=== PATIENT | female | born 1970 | race Caucasian/White ===

== ENCOUNTER 2023-02-26 09:39 | Outpatient (OUT) | payer OTHER, SELFPAY ==
[2023-02-26 10:17] LABS: Basophils Percent Auto 1.1 % (0.2-2.0); Eosinophils Absolute Auto 0.2 10^3/uL (0.0-0.7); Hematocrit 39.6 % (36.0-48.0); Hemoglobin 13.6 g/dL (12.0-16.0); Lymphocytes Absolute Auto 1.1 10^3/uL (1.2-3.8); Lymphocytes Percent Auto 38.2 % (20.5-60.0); Mean Corpuscular HGB Conc 34.3 g/dL (29.9-35.2); Mean Corpuscular Hemoglobin 28.3 pg (26.7-34.0); Mean Corpuscular Volume 82.3 fL (81.0-99.0); Mean Platelet Volume 9.9 fL (9.5-13.5); Monocytes Absolute Auto 0.3 10^3/uL (0.3-0.8); Monocytes Percent Auto 9.5 % (1.7-12.0); Neutrophils Absolute Auto 1.2 10^3/uL (1.4-6.5); Neutrophils Percent Auto 43.2 % (43.0-75.0); Platelet Count 216 10^3/uL (150-450); Red Blood Count 4.81 10^6/uL (4.20-5.40); Red Cell Distribution Width 13.2 % (11.0-15.0); White Blood Count 2.8 10^3/uL (4.0-11.0)
[2023-02-26 10:43] LABS: Anion Gap 13.6; BUN Creatinine Ratio 16.3; Calcium 9.2 mg/dL (8.5-10.1); Carbon Dioxide 26.4 mmol/L (21.0-32.0); Chloride 105 mmol/L (98-107); Estimated GFR (African America >60 (>=60); Estimated GFR (Non-African Ame >60 (>=60); Glucose 95 mg/dL (74-106); Sodium 141 mmol/L (136-145); Thyroid Stimulating Hormone 0.156 uIU/mL (0.358-3.740)
[2023-02-26 11:22] LABS: Free T4 1.48 ng/dL (0.76-1.46)
== END 2023-02-26 09:40 | disposition home or self-care (01) ==
PROVIDERS: PCP Family Medicine; Visit Provider Family Medicine
DX: Z00.00 Encounter for general adult medical examination without abnormal findings (principal); E03.9 Hypothyroidism, unspecified
CPT/HCPCS: 36415; 80048; 84439; 84443; 85025

== ENCOUNTER 2023-05-23 08:25 | Outpatient (OUT) | payer OTHER, SELFPAY ==
[2023-05-23 08:57] LABS: Basophils Percent Auto 1.1 % (0.2-2.0); Eosinophils Absolute Auto 0.2 10^3/uL (0.0-0.7); Eosinophils Percent Auto 6.4 % (0.9-7.0); Hematocrit 40.8 % (36.0-48.0); Hemoglobin 14.1 g/dL (12.0-16.0); Lymphocytes Absolute Auto 1.3 10^3/uL (1.2-3.8); Lymphocytes Percent Auto 35.8 % (20.5-60.0); Mean Corpuscular HGB Conc 34.6 g/dL (29.9-35.2); Mean Corpuscular Hemoglobin 29.4 pg (26.7-34.0); Monocytes Absolute Auto 0.3 10^3/uL (0.3-0.8); Monocytes Percent Auto 7.8 % (1.7-12.0); Neutrophils Absolute Auto 1.8 10^3/uL (1.4-6.5); Neutrophils Percent Auto 48.9 % (43.0-75.0); Platelet Count 240 10^3/uL (150-450); Red Cell Distribution Width 12.3 % (11.0-15.0); White Blood Count 3.7 10^3/uL (4.0-11.0)
[2023-05-23 09:05] LABS: Thyroid Stimulating Hormone 0.217 uIU/mL (0.358-3.740)
[2023-05-23 09:42] LABS: Free T4 1.36 ng/dL (0.76-1.46)
== END 2023-05-23 08:26 | disposition home or self-care (01) ==
LOC: LAB 08:30
PROVIDERS: PCP Family Medicine; Visit Provider Family Medicine
DX: D72.819 Decreased white blood cell count, unspecified (principal); E03.9 Hypothyroidism, unspecified
CPT/HCPCS: 36415; 84439; 84443; 85025

== ENCOUNTER 2023-07-15 07:31 | Outpatient (OUT) | payer OTHER, SELFPAY ==
--- NOTE | 2023-07-15 07:58 | MM_ITS ---
Patient Name: CATHY CANALES MR#: [id number] : 1970 Exam Date: 07/15/2023 Ordering Doctor: DR Destiny Cedeno M.D. RADIOLOGY REPORT PROCEDURE: MM TOMOSYNTHESIS SCREENING BI COMPARISON: MG MAMM SCREEN 3D MELINDA CAD, 07/14/2022. MG MAMM SCREEN 3D MELINDA CAD, 03/13/2021. MG MAMM SCREEN MELINDA W CAD, 01/24/2020. MG MAMM MELINDA SCRN W CAD DIG, 01/24/2015. INDICATIONS: Screening Calculator Name NCI Breast Cancer Risk Assessment Tool 5 Year Breast Cancer Risk 1.10% Lifetime Breast Cancer Risk 9.70% Personal Breast Cancer No Personal Ovarian Cancer No Treatments None Family Cancers Grandfather-paternal with lung cancer at age ~75. LOCATION: [facility] BREAST COMPOSITION: Extremely dense, which lowers the sensitivity of mammography. FINDINGS: DIAGNOSTIC CATEGORY 1--NEGATIVE. RIGHT BREAST: No significant suspicious finding. No significant change has occurred. LEFT BREAST: No significant suspicious finding. No significant change has occurred. RECOMMENDATIONS: ROUTINE MAMMOGRAM AND CLINICAL EVALUATION IN 12 MONTHS. PLEASE NOTE: A NORMAL MAMMOGRAM DOES NOT EXCLUDE THE POSSIBILITY OF BREAST CANCER. A CLINICALLY SUSPICIOUS PALPABLE LUMP SHOULD BE BIOPSIED. Dictated by: Yuri Mcintyre M.D. on 07/15/2023 at 14:34 Approved by: Yuri Mcintyre M.D. on 07/15/2023 at 14:37
== END 2023-07-15 07:32 | disposition home or self-care (01) ==
LOC: MAMMO 07:31
PROVIDERS: PCP Family Medicine; Visit Provider Family Medicine
DX: Z12.31 Encounter for screening mammogram for malignant neoplasm of breast (principal); Z80.1 Family history of malignant neoplasm of trachea, bronchus and lung
CPT/HCPCS: 77063; 77067

== ENCOUNTER 2023-08-13 11:36 | Outpatient (OUT) | payer OTHER, SELFPAY ==
--- OUTSIDE RECORDS SUMMARY | 2023-08-13 11:39 | XMS_ITS | CCD ---
Author Name Unknown Address [address] [facility] [address] [place] [id number] Organization [facility] Care Team Providers Care Meteorological Engineer Name Role Phone SKYLER, DR DESTINY Chinchilla Attending Unavailable NICOLE, DR YURI Emerson Consulting Unavailable CEDENO, DR DESTINY Chinchilla Primary Care Unavailable CEDENO, DR DESTINY Chinchilla Admitting Unavailable CEDENO, DR DESTINY Chinchilla Consulting Unavailable CEDENO, DR DESTINY Chinchilla Attending Unavailable CEDENO, DR DESTINY Chinchilla Consulting Unavailable CEDENO, DR DESTINY Chinchilla Primary Care Unavailable CEDENO, DR DESTINY hCinchilla Admitting Unavailable CEDENO, DR DESTINY Chinchilla Attending Unavailable CEDENO, DR DESTINY Chinchilla Consulting Unavailable CEDENO, DR DESTINY Chinchilla Primary Care Unavailable CEDENO, DR DESTINY Chinchilla Admitting Unavailable Cedeno, Destiny Unavailable Allergies Allergy Classification Reported Allergen(s) Allergy Type Date of Onset Reaction(s) Facility (3 sources) patient allergy list reviewed by nurse or physicia Propensity to adverse reactions Comment:Done [facility] Other (3 sources) Allergies Reconciled Propensity to adverse reactions Unknown [facility] Other Medications Current Medications Medication Drug Class(es) Dates Sig (Normalized) Sig (Original) acyclovir 800 mg oral tablet (6 sources) Herpesvirus Nucleoside Analog DNA Polymerase Inhibitor, Herpes Simplex Virus Nucleoside Analog DNA Polymerase Inhibitor, Herpes Zoster Virus Nucleoside Analog DNA Polymerase Inhibitor Start: 09-21-2022 take 1 tablet by mouth every eight hours Acyclovir 800 MG 1 tablet Orally Three times a day for 7 days Sep, Active levothyroxine sodium 0.088 mg oral tablet (6 sources) l-Thyroxine take 1 tablet by mouth once daily in the morning Levothyroxine Sodium 88 MCG 1 tablet in the morning on an empty stomach Orally Once a day for 90 days Active take 1 tablet by mateusz th once daily in the morning Levothyroxine Sodium 88 MCG 1 tablet in the morning on an empty stomach Orally Once a day for 90 days Active take 1 tablet by mateuzs th once daily in the morning Levothyroxine Sodium 100 MCG 1 tablet in the morning on an empty stomach Orally Once a day for 90 days Active take 1 tablet by mateusz th once daily in the morning Levothyroxine Sodium 112 MCG 1 tablet in the morning on an empty stomach Orally Once a day Active Problems Active Problems Problem Classification Problem Date Documented Da te Episodic/Chronic Diseases of white blood cells (5 sources) Leukopenia; Translations: [Decreased white blood cell count, unspecified] Chronic Immunizations and screening for infectious disease (3 sources) Vaccination given; Translations: [Encounter for immunization] Episodic Other screening for suspected conditions (not mental disorders or infectious disease) (8 sources) Encounter for screening mammogram for malignant neoplasm of breast; Translations: [Encounter for screening for malignant neoplasm of cervix] Onset: 02-02-2022 Episodic Other skin disorders (3 sources) Ingrowing nail; Translations: [Ingrowing nail] Episodic Residual codes; unclassified (1 source) Family history of malignant neoplasm of trachea, bronchus and lung; Translations: [FAM HX MALIG NEOPLSM TRACH BRON LNG] Onset: 07-17-2022 Episodic Residual codes; unclassified (3 sources) Normal body mass index; Translations: [Body mass index (BMI) 22.0-22.9, adult] Episodic Thyroid disorders (12 sources) Hypothyroidism, unspecified; Translations: [Acquired hypothyroidism] Onset: 02-04-2022 Chronic Viral infection (3 sources) Herpesviral vesicular dermatitis; Translations: [Herpesviral vesicular dermatitis] Episodic Past or Other Problems Problem Classification Problem Date Documented Da te Episodic/Chronic Allergic reactions (3 sources) Inflammatory dermatosis; Translations: [Dermatitis, unspecified] Onset: 05-26-2017 Episodic Residual codes; unclassified (3 sources) Family history of diabetes mellitus; Translations: [Family history of diabetes mellitus] Onset: 2013 Episodic Results Test Name Value Interpretation Reference Range Facil ity MG MAMM SCREEN 3D MELINDA CADon 07-14-2022 MG MAMM SCREEN 3D MELINDA CAD Patient: CATHY CANALES Exam Date: 07/14/2022 : 1970 Gender:F Ordering : DR DESTINY CEDENO M.D. Admission #: [id number] Family : Order #: [id number] CLICK HERE TO VIEW EXAM RADIOLOGY REPORT PROCEDURE: MAMMOGRAM SCREENING 3D BILATERAL CAD COMPARISON: MG MAMM SCREEN 3D MELINDA CAD, 03/13/2021. MG MAMM SCREEN MELINDA W CAD, 01/24/2020. INDICATIONS: Screening mammography Calculator Name NCI Breast Cancer Risk Assessment Tool 5 Year Breast Cancer Risk 1.10% Lifetime Breast Cancer Risk 9.90% Personal Breast Cancer No Personal Ovarian Cancer No Treatments None Family Cancers Grandfather-paternal with lung cancer at age 75. LOCATION: [facility] BREAST COMPOSITION: Extremely dense, which lowers the sensitivity of mammography. FINDINGS: DIAGNOSTIC CATEGORY 1--NEGATIVE. RIGHT BREAST: No significant suspicious finding. No significant change has occurred. LEFT BREAST: No significant suspicious finding. No significant change has occurred. RECOMMENDATIONS: ROUTINE MAMMOGRAM AND CLINICAL EVALUATION IN 12 MONTHS. PLEASE NOTE: A NORMAL MAMMOGRAM DOES NOT EXCLUDE THE POSSIBILITY OF BREAST CANCER. A CLINICALLY SUSPICIOUS PALPABLE LUMP SHOULD BE BIOPSIED. Dictated by: Yuri Mcintyre M.D. on 07/14/2022 at 15:34 Approved by: Yuri Mcintyre M.D. on 07/14/2022 at 15:36 Normal [facility] PAP ACOG PANEL 2: 30 to 65on 02-04-2022 . . Normal [facility] Comment on above: Result Comment: Performed at: WB Performed By: #### [id number] #### [facility] [address] [address] [address] Bret Marinelli Age Gdln ACOG Testing 30-65 Normal [facility] Comment on above: Performed By: #### [id number] #### [facility] [address] [address] [address] Bret Marinelli DIAGNOSIS: Comment Normal [facility] Comment on above: Result Comment: NEGATIVE FOR INTRAEPITHE LIAL LESION OR MALIGNANCY. Performed at: WB Performed By: #### [id number] #### [facility] [address] [address] [address] Bret Marinelli HPV Aptima Negative Normal Negative [facility] Comment on above: Result Comment: This nucleic acid amplif ication test detects fourteen high-risk HPV types (16,18,31,33,35,39,45,51,52,56,58,59,66,68) without differentiation. Performed at: =G Performed By: #### [id number] #### [facility] [address] [place] [address] Dr. Bret Marinelli Methodology: Comment Normal [facility] Comment on above: Result Comment: This liquid based ThinPr ep(R) pap test was screened with the use of an image guided system. Performed at: WB Performed By: #### [id number] #### [facility] [address] [place] [address] Dr. Bret Marinelli Note: Comment Normal [facility] Comment on above: Result Comment: The Pap smear is a scree landry test designed to aid in the detection of premalignant and malignant conditions of the uterine cervix. It is not a diagnostic procedure and should not be used as the sole means of detecting cervical cancer. Both false-positive and false-negative reports do occur. . Performed at: WB Performed By: #### [id number] #### [facility] [address] [place] [address] Dr. Bret Marinelli Performed by: Comment Normal [facility] Comment on above: Result Comment: Henri Batista Cytotechnolinda griffiths (ASCP) Performed at: WB Performed By: #### [id number] #### [facility] [address] [place] [address] Dr. Bret Marinelli Specimen adequacy: Comment Normal [facility] Comment on above: Result Comment: Satisfactory for evaluat ion. No endocervical component is identified. Performed at: WB Performed By: #### [id number] #### [facility] [address] [place] [address] Dr. Bret Marinelli FREE T4on 02-02-2022 Free T4 [Mass/Vol] 1.40 ng/dL Normal 0.76-1.46 [facility] Comment on above: Performed By: #### [id number] #### [facility] [address] [place] [address] Dr. Bret Marinelli TSHon 02-02-2022 TSH 0.197 uIU/mL Critically low 0.358-3.740 [facility] Comment on above: Performed By: #### TSH #### [facility] [address] [place] [address] Dr. Bret Marinelli Vital Signs Date Time Vital Sign Value Performing Clinician Facility 02-04-2023 08:30-0400 Body height 170.18 cm Destiny Cedeno Other [facility] Other 02-04-2023 08:30-0400 Body mass index (BMI) [Ratio] 22.55 kg/m2 Destiny Cedeno Other [facility] Other 02-04-2023 08:30-0400 Body weight 65.32 kg Destiny Cedeno Other [facility] Other 02-04-2023 08:30-0400 Diastolic blood pressure 70 mm[Hg] Destiny Cedeno Other [facility] Other 02-04-2023 08:30-0400 Systolic blood pressure 117 mm[Hg] Destiny Cedeno Other [facility] Other Encounters Encounter Date Encounter Type Care Provider Facility Start: 07-22-2023 End: 07-22-2023 ambulatory Destiny Cedeno Other [facility] Other Start: 07-22-2023 Telephone encounter Destiny Cedeno [facility] Start: 05-25-2023 End: 05-25-2023 ambulatory Destiny Cedeno Other [facility] Other Start: 05-25-2023 Telephone encounter Destiny Cedeno [facility] Start: 05-10-2023 End: 05-10-2023 ambulatory Destiny Cedeno Other [facility] Other Start: 05-10-2023 Telephone encounter Destiny Cedeno [facility] Start: 02-28-2023 End: 02-28-2023 ambulatory Destiny Cedeno Other [facility] Other Start: 02-28-2023 Telephone encounter Destiny Cedeno [facility] Start: 02-04-2023 End: 02-04-2023 ambulatory Destiny Cedeno Other [facility] Other Start: 02-04-2023 Encounter for genera l adult medical examination without abnormal findings Destiny Cedeno [facility] Start: 02-04-2023 Periodic preventive med est patient 40-64yrs Destiny Cedeno [facility] Start: 07-14-2022 End: 07-15-[address] DESTINY CEDENO Facility:[facility] Start: 02-02-2022 End: 02-02-[address] DESTINY CEDENO Facility:[facility] Start: 02-02-2022 Adult health examination Destiny Cedeno Other [facility] Other Start: 02-02-2022 End: 02-03-[address] DESTINY CEDENO Facility:[facility] Procedures Date Procedure Procedure Detail Performing Clinician Start: 12-19-2014 Screening mammography Stacia Cedeno Other Screening for malign ant neoplasm of breast Destiny Cedeno Other Immunizations Immunization Date Immunization Notes Care Provider Fa cili 05-26-2021 influenza virus vaccine, split virus (incl. purified surface antigen) Destiny Cedeno Other [facility] Other Payers Date Payer Category Payer Unknown [id number] 09.30.83 [id number] 1970 Unknown [id number] [id number]. [id number] 1970 Unknown [id number] 09.30.83 [id number] 1958 Unknown [id number] Social History Date Type Detail Facility Unknown if ever smoked [facility] Other Sex Assigned At Sex Assigned At Bir th [facility] Other Evaluation note 07-22-2023 Note Date & Type Note Facility 07-22-2023 Evaluation note Encounter Date Diagnosis Assessment Notes Jul, Leukopenia, unspecified type (ICD-10 - D72.819) [facility] Other Evaluation note 05-10-2023 Note Date & Type Note Facility 05-10-2023 Evaluation note Encounter Date Diagnosis Assessment Notes Apr, Leukopenia, unspecified type (ICD-10 - D72.819) Apr, Acquired hypothyroidism (ICD-10 - E03.9) [facility] Other Evaluation note 02-04-2023 Note Date & Type Note Facility 02-04-2023 Evaluation note Encounter Date Diagnosis Assessment Notes Jan, Well adult exam (ICD-10 - Z00.00) We have discussed the necessity of following up with PCP regularly as well as specialists, as needed. Discussed F/U with dentistry and optometry at least yearly. Discussed all preventative measures/ cancer screenings as applicable to this patient. Emphasized the importance of a reduced fat, low carb diet to promote heart health and controlled blood sugars. Reviewed social history and ensured patient is safe within the home today. Pt denies any abuse of alcohol, nicotine, caffeine or recreational drugs. I have ensured patient is of stable mental and physical health today. We have discussed appropriate F/U schedule as well as blood work and vaccinations that apply. All questions answered and patient is sent home pleased, without concerns. Jan, Acquired hypothyroidism (ICD-10 - E03.9) chronic problem - due for labs [facility] Other Evaluation note Note Date & Type Note Facility Evaluation note No Information [facility] Other History general Narrative - Reported Note Date & Type Note Facility History general Narrative - Reported Type Medical History HYPOTHYROID [facility] Other History general Narrative - Reported Note Date & Type Note Facility History general Narrative - Reported [facility] Other History general Narrative - Reported Note Date & Type Note Facility History general Narrative - Reported Type Medical History HYPOTHYROID Surgical History Problem Title : past surgical history reviewed, Problem Description : past surgical history reviewed, Problem Comment : reviewed - no changes required, Problem Status : Active, Surgical History Problem Title : surg ical procedures, hx of, Problem Description : surgical procedures, hx of, Problem Comment : None, Problem Status : Active, [facility] Other Summary Purpose Family History No Family History Records Found Advance Directives No Advanced Directives Records Found Additional Source Comments INFORMATION SOURCE (unrecogn ized section and content) DATE CREATED AUTHOR 07/17/2022 [facility] REASON FOR VISIT (unrecogniz ed section and content) WELLNESSNo [email or web address] FOR RECORDS PERTAINING TO PATIENTS WHO ARE OR HAVE BEEN ENROLLED IN A CHEMICAL DEPENDENCY/SUBSTANCEABUSE PROGRAM, SOME INFORMATION MAY BE OMITTED. This clinical summary was aggregated from multiple sources. Caution should be exercised in using it in the provision of clinical care. This summary normalizes information from multiple sources, and as a consequence, information in this document may materially change the coding, format and clinical context of patient data. In addition, data may be omitted in some cases. CLINICAL DECISIONS SHOULD BE BASED ON THE PRIMARY CLINICAL RECORDS. [employer] [facility]. provides no warranty or guarantee of the accuracy or completeness of information in this document.
[2023-08-13 11:49] LABS: Basophils Percent Auto 0.9 % (0.2-2.0); Eosinophils Absolute Auto 0.2 10^3/uL (0.0-0.7); Eosinophils Percent Auto 4.8 % (0.9-7.0); Hematocrit 38.3 % (36.0-48.0); Immature Granulocytes Abs Auto 0.01 10^3/uL (0.00-0.03); Immature Granulocytes Pct Auto 0.2 % (0.0-0.5); Lymphocytes Absolute Auto 1.6 10^3/uL (1.2-3.8); Lymphocytes Percent Auto 35.7 % (20.5-60.0); Mean Corpuscular HGB Conc 33.9 g/dL (29.9-35.2); Mean Corpuscular Hemoglobin 28.3 pg (26.7-34.0); Mean Corpuscular Volume 83.3 fL (81.0-99.0); Mean Platelet Volume 10.1 fL (9.5-13.5); Monocytes Absolute Auto 0.4 10^3/uL (0.3-0.8); Monocytes Percent Auto 8.5 % (1.7-12.0); Neutrophils Absolute Auto 2.3 10^3/uL (1.4-6.5); Neutrophils Percent Auto 49.9 % (43.0-75.0); Platelet Count 258 10^3/uL (150-450); Red Cell Distribution Width 12.2 % (11.0-15.0); White Blood Count 4.6 10^3/uL (4.0-11.0)
== END 2023-08-13 11:37 | disposition home or self-care (01) ==
LOC: LAB 11:38
PROVIDERS: PCP Family Medicine; Visit Provider Family Medicine
DX: D72.819 Decreased white blood cell count, unspecified (principal)
CPT/HCPCS: 36415; 85025

== ENCOUNTER 2024-02-10 09:45 | Outpatient (OUT) | payer OTHER, SELFPAY ==
--- OUTSIDE RECORDS SUMMARY | 2024-02-10 09:50 | XMS_ITS | CCD ---
Author Organization [facility] Care Team Providers Care Specialized Developer Name Role Phone SKYLER, DR DESTINY Chinchilla Attending Unavailable NICOLE, DR YURI Emerson Consulting Unavailable CEDENO, DR DESTINY Chinchilla Primary Care Unavailable CEDENO, DR DESTINY Chinchilla Admitting Unavailable CEDENO, DR DESTINY Chinchilla Consulting Unavailable CEDENO, DR DESTINY Chinchilla Attending Unavailable CEDENO, DR DESTINY Chinchilla Consulting Unavailable CEDENO, DR DESTINY Chinchilla Primary Care Unavailable CEDENO, DR DESTINY Chinchilla Admitting Unavailable CEDENO, DR DESTINY Chinchilla Attending Unavailable CEDENO, DR DESTINY Chinchilla Consulting Unavailable CEDENO, DR DESTINY Chinchilla Primary Care Unavailable CEDENO, DR DESTINY Chinchilla Admitting Unavailable Destiny Cedeno Unavailable Allergies Allergy Classification Reported Allergen(s) Allergy Type Date of Onset Reaction(s) Facility (4 sources) patient allergy list reviewed by nurse or physicia Propensity to adverse reactions Comment:Done [facility] Other (4 sources) Allergies Reconciled Propensity to adverse reactions Unknown [facility] Other Medications Current Medications Medication Drug Class(es) Dates Sig (Normalized) Sig (Original) acyclovir 800 mg oral tablet (9 sources) Herpesvirus Nucleoside Analog DNA Polymerase Inhibitor, Herpes Simplex Virus Nucleoside Analog DNA Polymerase Inhibitor, Herpes Zoster Virus Nucleoside Analog DNA Polymerase Inhibitor Start: 12-12-2023 End: 12-12-2023 take 800 mg by mouth three times daily Acyclovir Active 800 MG PO Three times daily December 12, 2023 12:21pm Start: 09-21-2022 take 1 tablet by mateusz th every eight hours Acyclovir 800 MG 1 tablet Orally Three times a day for 7 days Sep, Active estradiol 0.1 mg/ml vaginal cream (1 source) Estrogen Start: 02-10-2024 Estradiol (Est race) 0.01 % (0.1 mg/gram) cream Active 1 GM VAGINAL 3 Times a week 42.5 February 10, 2024 12:00am levothyroxine sodium 0.088 mg oral tablet (9 sources) l-Thyroxine Start: 11-22-2023 take 1 tablet by mouth once daily in the morning Levothyroxine Active 0 .ROUTE .COMPLEX 90 November 22, 2023 2:53pm take 1 tablet by mouth every morning ON AN EMPTY STOMACH Start: 11-22-2023 End: 11-22-2023 take 88 ug by mouth once daily Levothyroxine Discontin ued 88 MCG PO Daily November 22, 2023 12:00am November 22, 2023 2:53pm take 1 tablet by mateusz th once [...] te Episodic/Chronic Diseases of white blood cells (6 sources) Leukopenia; Translations: [Decreased white blood cell count, unspecified] Chronic Immunizations and screening for infectious disease (4 sources) Vaccination given; Translations: [Encounter for immunization] Episodic Menopausal disorders (2 sources) Vaginal dryness; Translations: [Menopausal and female climacteric states] 02-10-2024 Chronic Other screening for suspected conditions (not mental disorders or infectious disease) (8 sources) Encounter for screening mammogram for malignant neoplasm of breast; Translations: [Encounter for screening for malignant neoplasm of cervix] Onset: 02-02-2022 Episodic Other skin disorders (4 sources) Ingrowing nail; Translations: [Ingrowing nail] Episodic Residual codes; unclassified (1 source) Family history of malignant neoplasm of trachea, bronchus and lung; Translations: [FAM HX MALIG NEOPLSM TRACH BRON LNG] Onset: 07-17-2022 Episodic Residual codes; unclassified (4 sources) Normal body mass index; Translations: [Body mass index (BMI) 22.0-22.9, adult] Episodic Thyroid disorders (16 sources) Hypothyroidism, unspecified; Translations: [Acquired hypothyroidism] Onset: 02-04-2022 Chronic Viral infection (4 sources) Herpesviral vesicular dermatitis; Translations: [Herpesviral vesicular dermatitis] Episodic Past or Other Problems Problem Classification Problem Date Documented Da te Episodic/Chronic Allergic reactions (4 sources) Inflammatory dermatosis; Translations: [Dermatitis, unspecified] Onset: 05-26-2017 Episodic Residual codes; unclassified (4 sources) Family history of diabetes mellitus; Translations: [Family history of diabetes mellitus] Onset: 2013 Episodic Results Test Name Value Interpretation Reference Range Facil ity MG MAMM SCREEN 3D MELINDA CADon 07-14-2022 MG MAMM SCREEN 3D MELINDA CAD Patient: JALEESA PAGAN Exam Date: 07/14/2022 : 1970 Gender:F Ordering : DR DESTINY CEDENO M.D. Admission #: [id number] Family : Order #: [id number] CLICK HERE TO VIEW EXAM RADIOLOGY REPORT [...] lung cancer at age 76. LOCATION: [facility] BREAST COMPOSITION: Extremely dense, which lowers the [...] Mcintyre M.D. on 07/14/2022 at 15:36 Normal [facility] PAP ACOG PANEL 2: 30 to 65on 02-04-2022 . . Normal [facility] Comment on above: Result Comment: Performed at: WB Performed By: #### [id number] #### [facility] [address] [place] [address] Dr. Bret Marinelli Age Gdln ACOG Testing 30-65 [facility] Comment on above: Performed By: #### [id number] #### [facility] [address] [place] [address] Dr. Bret Marinelli DIAGNOSIS: Comment Normal [facility] Comment on above: Result Comment: NEGATIVE FOR INTRAEPITHE LIAL LESION OR MALIGNANCY. Performed at: WB Performed By: #### [id number] #### [facility] [address] [place] [address] Dr. Bret Marinelli HPV Aptima Negative Normal [facility] Comment on above: Result Comment: This nucleic acid amplif ication test detects fourteen high-risk HPV types (16,18,31,33,35,39,45,51,52,56,58,59,66,68) without differentiation. Performed at: =G Performed By: #### [id number] #### [facility] [address] [place] [address] Dr. Bret Marinelli Methodology: Comment [facility] Comment on above: Result Comment: This liquid based ThinPr ep(R) pap test was screened with the use of an image guided system. Performed at: WB Performed By: #### [id number] #### [facility] [address] [place] [address] Dr. Bret Marinelli Note: Comment Normal [facility] Comment on above: Result Comment: The Pap smear is a scree landry test designed to aid in the detection of premalignant and malignant conditions of the uterine cervix. It is not a diagnostic procedure and should not be used as the sole means of detecting cervical cancer. Both false-positive and false-negative reports do occur. . Performed at: WB Performed By: #### [id number] #### [facility] [address] [place] [address] Dr. Bret Marinelli Performed by: Comment Normal [facility] Comment on above: Result Comment: Henri Batista, [employer]ote[employer] ogchiquita (ASCP) Performed at: WB Performed By: #### [id number] #### [facility] [address] [address] [address] Bret Marinelli Specimen adequacy: Comment Normal [facility] Comment on above: Result Comment: Satisfactory for evaluat ion. No endocervical component is identified. Performed at: WB Performed By: #### [id number] #### [facility] [address] [address] [address] Bret Marinelli FREE T4on 02-02-2022 Free T4 [Mass/Vol] 1.40 ng/dL Normal 0.76-1.46 [facility] Comment on above: Performed By: #### FT4 #### [facility] [address] [address] [address] Bret Marinelli TSHon 02-02-2022 TSH 0.197 uIU/mL Critically low 0.358-3.740 [facility] Comment on above: Performed By: #### TSH #### [facility] [address] [place] [address] Dr. Bret Marinelli Vital Signs Date Time Vital Sign Value Performing Clinician Facility 02-10-2024 08:31-0400 Body height 170.18 cm [facility] 02-10-2024 08:31-0400 Body mass index (BMI) [Ratio] 22.5 kg/m2 [facility] 02-10-2024 08:31-0400 Body weight 65.31 kg [facility] 02-10-2024 08:31-0400 Diastolic blood pressure 72 mm[Hg] [facility] 02-10-2024 08:31-0400 Heart rate 72 /min [facility] 02-10-2024 08:31-0400 Systolic blood pressure 115 mm[Hg] [facility] 02-04-2023 08:30-0400 Body height 170.18 cm Destiny Cedeno Other [facility] Other 02-04-2023 08:30-0400 Body mass index (BMI) [Ratio] 22.55 kg/m2 Destiny Cedeno Other [facility] Other 02-04-2023 08:30-0400 Body weight 65.32 kg Destiny Skyler Other [facility] Other 02-04-2023 08:30-0400 Diastolic blood pressure 70 mm[Hg] Destiny Skyler Other [facility] Other 02-04-2023 08:30-0400 Systolic blood pressure 117 mm[Hg] Destiny Cedeno Other [facility] Other Encounters Encounter Date Encounter Type Care Provider Facility Start: 02-10-2024 End: 02-10-2024 ambulatory [facility] Work Phone: Start: 02-10-2024 End: 02-10-2024 Patient encounter procedure [facility] Work Phone: Start: 11-22-2023 Non-patient / Non-visit [id number] Work Phone: Start: 08-16-2023 End: 08-16-2023 ambulatory Destiny Cedeno Other [facility] Other Start: 08-16-2023 Telephone encounter Destiny Cedeno [facility] Start: 07-22-2023 End: 07-22-2023 ambulatory Destiny Cedeno Other [facility] Other Start: 07-22-2023 Telephone encounter Destiny Skyler [facility] Start: 05-25-2023 End: 05-25-2023 ambulatory Destiny Cedeno Other [facility] Other Start: 05-25-2023 Telephone encounter Destiny Skyler [facility] Start: 05-10-2023 End: 05-10-2023 ambulatory Destiny Cedeno Other [facility] Other Start: 05-10-2023 Telephone encounter Destiny Cedeno [facility] Start: 02-28-2023 End: 02-28-2023 ambulatory Destiny Cedeno Other [facility] Other Start: 02-28-2023 Telephone encounter Destiny Cedeno [facility] Start: 02-04-2023 End: 02-04-2023 ambulatory Destiny Cedeno Other [facility] Other Start: 02-04-2023 Encounter for genera l adult medical examination without abnormal findings Destiny Cedeno [facility] Start: 02-04-2023 Periodic preventive med est patient 40-64yrs Destiny Cedeno [facility] Start: 07-14-2022 End: 07-15-[address] DESTINY CEDENO Facility:[facility] Start: 02-02-2022 End: 02-02-[address] DESTINY CEDENO Facility:[facility] Start: 02-02-2022 Adult health examination Destiny Cedeno Other [facility] Other Start: 02-02-2022 End: 02-03-[address] DESTINY CEDENO Facility:[facility] Procedures Date Procedure Procedure Detail Performing Clinician Start: 12-19-2014 Screening mammography Stacia teagan Cedeno Other Screening for malign ant neoplasm of breast Destiny Cedeno Other Plan of Treatment Date Care Activity Detail Author [facility] Immunizations Immunization Date Immunization Notes Care Provider Fa cility 05-26-2021 influenza virus vaccine, split virus (incl. purified surface antigen) Destiny Cedeno Other [facility] Other 05-26-2021 influenza virus vaccine, unspecified formulation [facility] Payers Date Payer Category Payer Unknown [id number] .[id number] 1970 Unknown [id number] 1970 Unknown [id number] 1958 Unknown [id number] Social History Date Type Detail Facility Unknown if ever smoked [facility] Other Sex Assigned At Sex Assigned At Bir th [facility] Other Start: 1970 Sex Assigned At Female F [facility] Evaluation note 07-22-2023 Note Date & Type Note Facility 07-22-2023 Evaluation note Encounter Date Diagnosis Assessment Notes Jul, Leukopenia, unspecified type (ICD-10 - D72.819) [facility] Other Evaluation note 05-10-2023 Note Date & Type Note Facility 05-10-2023 Evaluation note Encounter Date Diagnosis Assessment Notes Apr, Leukopenia, unspecified type (ICD-10 - D72.819) Apr, Acquired hypothyroidism (ICD-10 - E03.9) [facility] Other Evaluation note 02-04-2023 Note Date & [...] E03.9) chronic problem - due for labs [facility] Other Evaluation note Note Date & Type Note Facility Evaluation note No Information [facility] Other Evaluation note Note Date & Type Note Facility Evaluation note Diagnosis Onset Date Acquired hypothyroidism acut e Vaginal dryness, menopausal acute [facility] exam acute [facility] Work Phone: History general Narrative - Reported Note Date & Type Note Facility History general Narrative - Reported Type Medical History HYPOTHYROID [facility] Other History general Narrative - Reported Note Date & Type Note Facility History general Narrative - Reported [facility] Other History general Narrative - Reported Note [...] Comment : None, Problem Status : Active, [facility] Other Summary Purpose Family History Relationship Condition Age at Onset Recorded Date/T sabas brother Diabetes mellitus Unknown Hypertension Unknown father Hypertension Unknown Diabetes mellitus Unknown mother Unknown Advance Directives Advance Directive Response Recorded Date/ Time Advance Directives No January 09 2:40pm Chief Complaint and Reason for Visit Chief Complaint Amb Documentation wellness, womens pap Reason for Visit Acquired hypothyroid ism Vaginal dryness, menopausal Well woman exam Additional Source Comments INFORMATION SOURCE (unrecogn ized section and content) DATE CREATED AUTHOR 07/17/2022 [facility] REASON FOR VISIT (unrecogniz ed section and content) WELLNESSNo [email or web address] [email or web address] [facility] Care Teams (unrecognized sec tion and content) Team Status: Active Member Role Status Dates Destiny Cedeno MD Primary Care Provider Active Team Status: Active Member Role Status Dates Destiny Cedeno MD Primary Care Provider Active Start: November 22, 2023 CHELY Keating Attending Provider Active Start : November 22, 2023 Team Status: Inactive Member Role Status Dates Destiny Cedeno MD Primary Care Provide r, Attending Provider Active Start: February 10, 2024 End: February 10, 2024 Goals (unrecognized section and content) Goals may be documented in a n alternate section FOR RECORDS PERTAINING TO PATIENTS WHO ARE [...] BE BASED ON THE PRIMARY CLINICAL RECORDS. [facility] [employer] [facility]. provides no warranty or guarantee of the accuracy or completeness of information in this document.
[2024-02-10 11:23] LABS: Free T4 0.93 ng/dL (0.76-1.46)
[2024-02-10 11:37] LABS: Thyroid Stimulating Hormone 7.068 uIU/mL (0.358-3.740)
== END 2024-02-10 09:46 | disposition home or self-care (01) ==
LOC: LAB 09:46
PROVIDERS: PCP Family Medicine; Visit Provider Family Medicine
DX: E03.9 Hypothyroidism, unspecified (principal)
CPT/HCPCS: 36415; 84439; 84443

== ENCOUNTER 2024-07-20 07:54 | Outpatient (OUT) | payer OTHER, SELFPAY ==
--- NOTE | 2024-07-20 07:56 | MM_ITS ---
Patient Name: CATHY CANALES MR#: [id number] : 1970 Exam Date: 07/20/2024 Ordering Doctor: DR Destiny Cedeno M.D. RADIOLOGY REPORT PROCEDURE: MM TOMOSYNTHESIS SCREENING BI COMPARISON: MM TOMOSYNTHESIS SCREENING BI, 07/15/2023. MG MAMM SCREEN 3D MELINDA CAD, 07/14/2022. MG MAMM SCREEN 3D MELINDA CAD, 03/13/2021. MG MAMM MELINDA SCRN W CAD DIG, 01/24/2015. INDICATIONS: Screening Calculator Name NCI Breast Cancer Risk Assessment Tool 5 Year Breast Cancer Risk 1.20% Lifetime Breast Cancer Risk 9.60% Personal Breast Cancer No Personal Ovarian Cancer No Treatments None Family Cancers Grandfather-paternal with lung cancer at age ~75. LOCATION: [facility] BREAST COMPOSITION: The breasts are extremely dense, which lowers the sensitivity of mammography. FINDINGS: DIAGNOSTIC CATEGORY 1--NEGATIVE. RIGHT BREAST: No significant suspicious finding. No significant change has occurred. LEFT BREAST: No significant suspicious finding. No significant change has occurred. RECOMMENDATIONS: ROUTINE MAMMOGRAM AND CLINICAL EVALUATION IN 12 MONTHS. PLEASE NOTE: A NORMAL MAMMOGRAM DOES NOT EXCLUDE THE POSSIBILITY OF BREAST CANCER. A CLINICALLY SUSPICIOUS PALPABLE LUMP SHOULD BE BIOPSIED. Dictated by: Yuri Mcintyre M.D. on 07/20/2024 at 10:07 Approved by: Yuri Mcintyre M.D. on 07/20/2024 at 10:10
--- OUTSIDE RECORDS SUMMARY | 2024-07-20 08:16 | XMS_ITS | CCD ---
Author Organization [facility] Care Team Providers Care Merchandising Consultant Name Role Phone SKYLER, DR DESTINY Chinchilla Attending Unavailable NICOLE, DR YURI Emerson Consulting Unavailable CEDENO, DR DESTINY Chinchilla Primary Care Unavailable SKYLER, DR DESTINY Chinchilla Admitting Unavailable CEDENO, DR DESTINY Chinchilla Consulting Unavailable SKYLER, DR DESTINY Chinchilla Attending Unavailable CEDENO, DR DESTINY Chinchilla Consulting Unavailable CEDENO, DR DESTINY Chinchilla Primary Care Unavailable CEDENO, DR DESTINY Chinchilla Admitting Unavailable CEDENO, DR DESTINY Chinchilla Attending Unavailable SKYLER, DR DESTINY Chinchilla Consulting Unavailable CEDENO, DR DESTINY Chinchilla Primary Care Unavailable CEDENO, DR DESTINY Chinchilla Admitting Unavailable Destiny Cedeno Unavailable Destiny Cedeno Attending Unavailable Destiny Cedeno Admitting Unavailable Allergies Allergy Classification Reported Allergen(s) Allergy Type Date of Onset Reaction(s) Facility (4 sources) patient allergy list reviewed by nurse or physicia Propensity to adverse reactions Comment:Done [facility] Other (4 sources) Allergies Reconciled Propensity to adverse reactions Unknown [facility] Other Medications Current Medications Medication Drug Class(es) [...] Name Value Interpretation Reference Range Facil ity Pap IG, CtNg, rfx HPV Aptima on 02-10-2024 PAP Chlamydia YUMI Negative Normal Negative [facility] Comment on above: Performed By: #### P AP #### [facility] , PAP Gonococcus Negative Normal Negative [facility] Comment on above: Result Comment: Perf ormed at: [facility] - [facility] [id number] [place] [id number] Fire Alarm Mechanic: Bakari Gasca MD, Phone: [phone] Performed at: = - [facility] [address] [id number] Fire Alarm Mechanic: Sakshi Carreno MD, Phone: [phone] PERFORMED BY: [address] [place] [address] PATHOLOGIST [employer] OPERATOR KELSEY TRIANA M.D. Performed By: #### P AP #### [facility] , Pap IG Note Normal . [facility] Comment on above: Result Comment: TEST S RESULT FLAG UNITS REF RANGE LAB Clinician Provided Cytology Information No. of containers..01 ThinPrep Vial DIAGNOSIS: 01 NEGATIVE FOR INTRAEPITHELIAL LESION OR MALIGNANCY. Specimen adequacy: 01 Satisfactory for evaluation. No endocervical component is identified. Performed by: 01 Alona Albarado [place] ([facility]) . 01 Note: Note 02 The Pap smear is a screening test designed to aid in the detection of premalignant and malignant conditions of the uterine cervix. It is not a diagnostic procedure and should not be used as the sole means of detecting cervical cancer. Both false-positive and false-negative reports do occur. Test Methodology: Note 02 This liquid based ThinPrep(R) pap test was screened with the use of an image guided system. . 01 The HPV DNA reflex criteria were not met with this specimen result therefore, no HPV testing was performed. FLAG LEGEND: L-Low Normal,H-High Normal,LL-Alert Low,HH-Alert High <-Panic Low,>-Panic High,A-Abnormal,AA-Critical Abnormal Performed at: 01 [facility] [id number] [place] [id number] Bakari Gasca MD, 02 WB [facility] [address] [id number] Sakshi Carreno MD, Performed By: #### P AP [id number] #### [facility] , MG MAMM SCREEN 3D MELINDA CADon 07-14-2022 MG MAMM SCREEN 3D MELINDA CAD Patient: JALEESA PAGAN Exam Date: 07/14/2022 : 1970 Gender:F Ordering : DR DESTINY CEDENO M.D. Admission #: [id number] Family : Order #: [id number] CLICK HERE TO VIEW EXAM RADIOLOGY REPORT [...] lung cancer at age 76. LOCATION: The [facility] BREAST COMPOSITION: Extremely dense, which lowers [...] Mcintyre M.D. on 07/14/2022 at 15:36 Normal [facility] PAP ACOG PANEL 2: 30 to 65on 02-04-2022 . . Normal [facility] Comment on above: Result Comment: Perf ormed at: WB Performed By: #### [id number] #### [facility] [address] [address] [address] Bret Marinelli Age Gdln ACOG Testing 30-65 Normal [facility] Comment on above: Performed By: #### [id number] #### [facility] [address] [address] [address] Bret Marinelli DIAGNOSIS: Comment Normal [facility] Comment on above: Result Comment: NEGA TIVE FOR INTRAEPITHELIAL LESION OR MALIGNANCY. Performed at: WB Performed By: #### 4 [id number] #### [facility] [address] [address] [address] Bret Marinelli HPV Aptima Negative Normal Negative [facility] Comment on above: Result Comment: This nucleic acid amplification test detects fourteen high-risk HPV types (16,18,31,33,35,39,45,51,52,56,58,59,66,68) without differentiation. Performed at: =G Performed By: #### [id number] #### [facility] [address] [place] [address] Dr. Bret Marinelli Methodology: Comment Normal [facility] Comment on above: Result Comment: This liquid based ThinPrep(R) pap test was screened with the use of an image guided system. Performed at: WB Performed By: #### 4 [id number] #### [facility] [address] [place] [address] Dr. Bret Marinelli Note: Comment Normal [facility] Comment on above: Result Comment: The Pap smear is a screening test designed to aid in the detection of premalignant and malignant conditions of the uterine cervix. It is not a diagnostic procedure and should not be used as the sole means of detecting cervical cancer. Both false-positive and false-negative reports do occur. . Performed at: WB Performed By: #### 4 [id number] #### [facility] [address] [place] [address] Dr. Bret Marinelli Performed by: Comment Normal [facility] Comment on above: Result Comment: Radha Batista, [place] ([facility]) Performed at: WB Performed By: #### 4 [id number] #### [facility] [address] [place] [address] Dr. Bret Marinelli Specimen adequacy: Comment Normal [facility] Comment on above: Result Comment: Sati sfactory for evaluation. No endocervical component is identified. Performed at: WB Performed By: #### 4 [id number] #### [facility] [address] [place] [address] Dr. Bret Marinelli FREE T4on 02-02-2022 Free T4 [Mass/Vol] 1.40 ng/dL Normal 0.76-1.46 [facility] Comment on above: Performed By: #### F T4 #### [facility] [address] [place] [address] Dr. Bret Marinelli TSHon 02-02-2022 TSH 0.197 uIU/mL Critically low 0.358-3.740 [facility] Comment on above: Performed By: #### T #### [facility] [address] [place] [address] Dr. Bret Marinelli Vital Signs Date Time Vital Sign Value Performing Clinician Facility 02-10-2024 08:31-0400 Body height 170.18 cm [facility] 02-10-2024 08:31-0400 Body mass index (BMI) [Ratio] 22.5 kg/m2 [facility] 02-10-2024 08:31-0400 Body weight 65.31 kg [facility] 02-10-2024 08:31-0400 Diastolic blood pressure 72 mm[Hg] [facility] 02-10-2024 08:31-0400 Heart rate 72 /min [facility] 02-10-2024 08:31-0400 Systolic blood pressure 115 mm[Hg] [facility] 02-04-2023 08:30-0400 Body height 170.18 cm Destiny Cedeno Other [facility] Other 02-04-2023 08:30-0400 Body mass index (BMI) [Ratio] 22.55 kg/m2 Destiny Cedeno Other [facility] Other 02-04-2023 08:30-0400 Body weight 65.32 kg Destiny Cedeno Other [facility] Other 02-04-2023 08:30-0400 Diastolic blood pressure 70 mm[Hg] Destiny Cedeno Other [facility] Other 02-04-2023 08:30-0400 Systolic blood pressure 117 mm[Hg] Destiny Cedeno Other [facility] Other Encounters Encounter Date Encounter Type Care Provider Facility Start: 02-10-2024 Encounter for gynecological examination (general) (routine) without abnormal findings Destiny Cedeno [facility] Start: 02-10-2024 End: 02-10-2024 ambulatory Destiny Cedeno [facility] Work Phone: Start: 02-10-2024 End: 02-10-2024 Patient encounter procedure [facility] Work Phone: Start: 11-22-2023 Non-patient / Non-visit [facility] Work Phone: Start: 08-16-2023 End: 08-16-2023 ambulatory Destiny Cedeno Other [facility] Other Start: 08-16-2023 Telephone encounter Destiny Skyler [facility] Start: 07-22-2023 End: 07-22-2023 ambulatory Destiny Cedeno Other [facility] Other Start: 07-22-2023 Telephone encounter Destiny Cedeno [facility] Start: 05-25-2023 End: 05-25-2023 ambulatory Destiny Cedeno Other [facility] Other Start: 05-25-2023 Telephone encounter Destiny Skyler [facility] Start: 05-10-2023 End: 05-10-2023 ambulatory Destiny Cedeno Other [facility] Other Start: 05-10-2023 Telephone encounter Destiny Skyler [facility] Start: 02-28-2023 End: 02-28-2023 ambulatory Destiny Cedeno Other [facility] Other Start: 02-28-2023 Telephone encounter Destiny Skyler [facility] Start: 02-04-2023 End: 02-04-2023 ambulatory Destiny Cedeno Other [facility] Other Start: 02-04-2023 Encounter for genera l adult medical examination without abnormal findings Destiny Cedeno [facility] Start: 02-04-2023 Periodic preventive med est patient 40-64yrs Destiny Cedeno [facility] Start: 07-14-2022 End: 07-15-[address] DESTINY CEDENO Facility:[facility] Start: 02-02-2022 End: 02-02-[address] DESTINY CEDENO Facility:[facility] Start: 02-02-2022 Adult health examination Justyna Cedeno Other [facility] Other Start: 02-02-2022 End: 02-03-[address] DESTINY CEDENO Facility:[facility] Procedures Date Procedure Procedure Detail Performing Clinician Start: 12-19-2014 Screening mammography Stacia Cedeno Other Screening for malign ant neoplasm of breast Destiny Cedeno Other Plan of Treatment Date Care Activity Detail Author [facility] Immunizations Immunization Date Immunization Notes Care Provider Fa cility 05-26-2021 influenza virus vaccine, split virus (incl. purified surface antigen) Destiny Cedeno Other [facility] Other 05-26-2021 influenza virus vaccine, unspecified formulation [facility] Payers Date Payer Category Payer Self-pay 1970 Unknown [id number] [id number] 1970 Unknown [id number] [id number] [id number] 1970 Unknown [id number] [id number] 1958 Unknown [id number] Unknown [id number] Social History Date Type Detail Facility Unknown if ever smoked [facility] Other Sex Assigned At Sex Assigned At Bir th [facility] Other Start: 1970 Sex Assigned At Female F [facility] Evaluation note 07-22-2023 Note Date & Type Note Facility 07-22-2023 Evaluation note Encounter Date Diagnosis Assessment Notes Jul, Leukopenia, unspecified type (ICD-10 - D72.819) [facility] Other Evaluation note 05-10-2023 Note Date & Type Note Facility 05-10-2023 Evaluation note Encounter Date Diagnosis Assessment Notes Apr, Leukopenia, unspecified type (ICD-10 - D72.819) Apr, Acquired hypothyroidism (ICD-10 - E03.9) [facility] Other Evaluation note 02-04-2023 Note Date & [...] E03.9) chronic problem - due for labs [facility] Other Evaluation note Note Date & Type Note Facility Evaluation note No Information [facility] Other Evaluation note Note Date & Type Note Facility Evaluation note Diagnosis Onset Date Acquired hypothyroidism acut e Vaginal dryness, menopausal acute Well woman exam [facility] Work Phone: History general Narrative - Reported Note Date & Type Note Facility History general Narrative - Reported Type Medical History HYPOTHYROID [facility] Other History general Narrative - Reported Note Date & Type Note Facility History general Narrative - Reported [facility] Other History general Narrative - Reported Note [...] Comment : None, Problem Status : Active, [facility] Other Summary Purpose Family History No Family History Records Found Relationship Condition Age at Onset Recorded Date/T sabas brother Diabetes mellitus Unknown Hypertension Unknown father Hypertension Unknown Diabetes mellitus Unknown mother Unknown Advance Directives No Advanced Directives Records Found Advance Directive Response Recorded Date/ Time Advance Directives No January 09 2:40pm Chief Complaint and Reason for Visit Chief Complaint Amb Documentation wellness, womens pap Reason for Visit Acquired hypothyroid ism Vaginal dryness, menopausal Well woman exam Additional Source Comments INFORMATION SOURCE (unrecogn ized section and content) DATE CREATED AUTHOR 07/17/2022 [facility] DATE CREATED AUTHOR AUTHOR'S ORGANIZ ATION 02/18/2024 [facility] REASON FOR VISIT (unrecogniz ed section and [...] BE BASED ON THE PRIMARY CLINICAL RECORDS. [employer] [facility]. provides no warranty or guarantee of the accuracy or completeness of information in this document.
== END 2024-07-20 07:55 | disposition home or self-care (01) ==
LOC: MAMMO 07:54
PROVIDERS: PCP Family Medicine; Visit Provider Family Medicine
DX: Z12.31 Encounter for screening mammogram for malignant neoplasm of breast (principal); Z80.1 Family history of malignant neoplasm of trachea, bronchus and lung
CPT/HCPCS: 77063; 77067

== ENCOUNTER 2025-02-21 09:47 | Outpatient (OUT) | payer OTHER, SELFPAY ==
--- OUTSIDE RECORDS SUMMARY | 2025-02-21 10:07 | XMS_ITS | CCD ---
Author Organization [facility] Care Team Providers Care Insurance Healthcare Representative Name Role Phone SKYLER, DR DESTINY Chinchilla [...] or physicia Propensity to adverse reactions Comment:Done [facility] Other (4 sources) Allergies Reconciled Propensity to adverse reactions Unknown [facility] Other Medications Current Medications Medication Drug Class(es) [...] PAP Chlamydia YUMI Negative Normal Negative [facility] Comment on above: Performed By: #### P AP #### [facility] , PAP Gonococcus Negative Normal Negative [facility] Comment on above: Result Comment: Perf ormed at: [facility] - [facility] [place] [facility] [address] [place] [id number] Board Member: Bakari Gasca MD, Phone: [phone] Performed at: = - [facility] [address] [id number] Board Member: Sakshi Carreno MD, Phone: [phone] PERFORMED BY: [address] [place] [address] PATHOLOGIST GRANTS DIRECTOR KELSEY TRIANA M.D. Performed By: #### P AP #### [facility] , Pap IG Note Normal . [facility] Comment on above: Result Comment: TEST S RESULT FLAG UNITS REF RANGE LAB Clinician Provided Cytology Information No. of containers..01 ThinPrep Vial DIAGNOSIS: 01 NEGATIVE FOR INTRAEPITHELIAL LESION OR MALIGNANCY. Specimen adequacy: 01 Satisfactory for evaluation. No endocervical component is identified. Performed by: 01 Alona Albarado Sustainment Logistics Analyst ([facility]) . 01 Note: Note 02 The Pap [...] High,A-Abnormal,AA-Critical Abnormal Performed at: 01 [facility] [place] [facility] [id number] [place] [id number] Bakari Gasca MD, 02 WB [facility] [address] [phone] Sakshi Carreno MD, Performed By: #### P AP [id number] #### [facility] , MG MAMM SCREEN 3D MELINDA CADon 07-14-2022 MG MAMM SCREEN 3D MELINDA CAD Patient: JALEESA PAGAN Exam Date: 07/14/2022 : 1970 Gender:F Ordering : DR DESTINY CEDENO M.D. Admission #: [id number] Family : Order #: [id number] CLICK HERE TO VIEW EXAM RADIOLOGY REPORT [...] lung cancer at age 76. LOCATION: The [facility] BREAST COMPOSITION: Extremely dense, which lowers [...] Mcintyre M.D. on 07/14/2022 at 15:36 Normal [facility] PAP ACOG PANEL 2: 30 to 65on 02-04-2022 . . Normal [facility] Comment on above: Result Comment: Perf ormed at: WB Performed By: #### [id number] #### [facility] [address] [address] [address] Bret Marinelli Age Gdln ACOG Testing 30-65 Normal [facility] Comment on above: Performed By: #### [id number] #### [facility] [address] [address] [address] Bret Marinelli DIAGNOSIS: Comment Normal [facility] Comment on above: Result Comment: NEGA TIVE FOR INTRAEPITHELIAL LESION OR MALIGNANCY. Performed at: WB Performed By: #### [id number] #### [facility] [address] [address] [address] Bret Marinelli HPV Aptima Negative Normal Negative [facility] Comment on above: Result Comment: This nucleic acid amplification test detects fourteen high-risk HPV types (16,18,31,33,35,39,45,51,52,56,58,59,66,68) without differentiation. Performed at: =G Performed By: #### 4 [id number] #### [facility] [address] [place] [address] Dr. Bret Marinelli Methodology: Comment Normal [facility] Comment on above: Result Comment: This liquid based ThinPrep(R) pap test was screened with the use of an image guided system. Performed at: WB Performed By: #### [id number] #### [facility] [address] [place] [address] Dr. Bret Marinelli Note: Comment Normal [facility] Comment on above: Result Comment: The Pap smear is a screening test designed to aid in the detection of premalignant and malignant conditions of the uterine cervix. It is not a diagnostic procedure and should not be used as the sole means of detecting cervical cancer. Both false-positive and false-negative reports do occur. . Performed at: WB Performed By: #### 4 [id number] #### [facility] [address] [place] [address] Dr. Bret Marinelli Performed by: Comment Normal [facility] Comment on above: Result Comment: Radha Batista, Sustainment Logistics Analyst ([employer]) Performed at: WB Performed By: #### 4 [id number] #### [facility] [address] [place] [address] Dr. Bret Marinelli Specimen adequacy: Comment Normal [facility] Comment on above: Result Comment: Sati sfactory for evaluation. No endocervical component is identified. Performed at: WB Performed By: #### 4 [id number] #### [facility] [address] [place] [address] Dr. Bret Marinelli FREE T4on 02-02-2022 Free T4 [Mass/Vol] 1.40 ng/dL Normal 0.76-1.46 [facility] Comment on above: Performed By: #### F T4 #### [facility] [address] [place] [address] Dr. Bret Marinelli TSHon 02-02-2022 TSH 0.197 uIU/mL Critically low 0.358-3.740 [facility] Comment on above: Performed By: #### T #### [facility] [address] [place] [address] Dr. Bret Marinelli Vital Signs Date Time Vital Sign Value Performing Clinician Facility 02-10-2024 08:31-0400 Body height 170.18 cm [facility] 02-10-2024 08:31-0400 Body mass index (BMI) [Ratio] 22.5 kg/m2 [facility] 02-10-2024 08:31-0400 Body weight 65.31 kg [facility] 02-10-2024 08:31-0400 Diastolic blood pressure 72 mm[Hg] [facility] 02-10-2024 08:31-0400 Heart rate 72 /min [facility] 02-10-2024 08:31-0400 Systolic blood pressure 115 mm[Hg] [facility] 02-04-2023 08:30-0400 Body height 170.18 cm Destiny Cedeno Other [employer] [facility] [employer] Other 02-04-2023 08:30-0400 Body mass index (BMI) [Ratio] 22.55 kg/m2 Destiny Cedeno Other [facility] Other 02-04-2023 08:30-0400 Body weight 65.32 kg Destiny Cedeno Other [facility] Other 02-04-2023 08:30-0400 Diastolic blood pressure 70 mm[Hg] Destiny Cedeno Other [employer] Other 02-04-2023 08:30-0400 Systolic blood pressure 117 mm[Hg] Destiny Cedeno Other [facility] Other Encounters Encounter Date Encounter Type Care Provider Facility Start: 02-10-2024 Encounter for gynecological examination (general) (routine) without abnormal findings Destiny Cedeno [facility] Start: 02-10-2024 End: 02-10-2024 ambulatory Destiny Cedeno [facility] Work Phone: Start: 02-10-2024 End: 02-10-2024 Patient encounter procedure [facility] Work Phone: Start: 11-22-2023 Non-patient / Non-visit [facility] Work Phone: Start: 08-16-2023 End: 08-16-2023 ambulatory Destiny Cedeno Other [employer] Other Start: 08-16-2023 Telephone encounter Destiny Skyler [facility] Start: 07-22-2023 End: 07-22-2023 ambulatory Destiny Cedeno Other [employer] Other Start: 07-22-2023 Telephone encounter Destiny Cedeno [facility] Start: 05-25-2023 End: 05-25-2023 ambulatory Destiny Cedeno Other [employer] Other Start: 05-25-2023 Telephone encounter Destiny Skyler [facility] Start: 05-10-2023 End: 05-10-2023 ambulatory Destiny Cedeno Other [employer] Other Start: 05-10-2023 Telephone encounter Destiny Skyler [facility] Start: 02-28-2023 End: 02-28-2023 ambulatory Destiny Cedeno Other [facility] Other Start: 02-28-2023 Telephone encounter Destiny Skyler [facility] Start: 02-04-2023 End: 02-04-2023 ambulatory Destiny Cedeno Other [facility] Other Start: 02-04-2023 Encounter for genera l adult medical examination without abnormal findings Destiny Cedeno [facility] Start: 02-04-2023 Periodic preventive med est patient 40-64yrs Destiny Cedeno [facility] Start: 07-14-2022 End: 07-15-[address] DESTINY CEDENO Facility:[facility] Start: 02-02-2022 End: 02-02-[address] DESTINY CEDENO Facility:[facility] Start: 02-02-2022 Adult health examination Justyna Cedeno Other [employer] Other Start: 02-02-2022 End: 02-03-[address] DESTINY CEDENO Facility:[facility] Procedures Date Procedure Procedure Detail Performing Clinician Start: 12-19-2014 Screening mammography Stacia Cedeno Other Screening for malign ant neoplasm of breast Destiny Cedeno Other Plan of Treatment Date Care Activity Detail Author [facility] Immunizations Immunization Date Immunization Notes Care Provider Fa cility 05-26-2021 influenza virus vaccine, split virus (incl. purified surface antigen) Destiny Cedeno Other [employer] Other 05-26-2021 influenza virus vaccine, unspecified formulation [facility] Payers Date Payer Category Payer Self-pay 1970 Unknown [id number] 1970 Unknown [id number] 1970 Unknown [id number] 1958 Unknown [id number] Unknown [id number] 2.16.8 [id number] Social History Date Type Detail Facility Unknown if ever smoked [employer] Other Sex Assigned At Sex Assigned At Bir th [employer] Other Start: 1970 Sex Assigned At Female F [facility] Evaluation note 07-22-2023 Note Date & Type Note Facility 07-22-2023 Evaluation note Encounter Date Diagnosis Assessment Notes Jul, Leukopenia, unspecified type (ICD-10 - D72.819) [facility] Other Evaluation note 05-10-2023 Note Date & Type Note Facility 05-10-2023 Evaluation note Encounter Date Diagnosis Assessment Notes Apr, Leukopenia, unspecified type (ICD-10 - D72.819) Apr, Acquired hypothyroidism (ICD-10 - E03.9) [facility] Other Evaluation note 02-04-2023 Note Date & [...] E03.9) chronic problem - due for labs [facility] Other Evaluation note Note Date & Type Note Facility Evaluation note No Information [employer] Other Evaluation note Note Date & Type Note Facility Evaluation note Diagnosis Onset Date Acquired hypothyroidism acut e Vaginal dryness, menopausal acute Well woman exam [facility] Work Phone: History general Narrative - Reported Note Date & Type Note Facility History general Narrative - Reported Type Medical History HYPOTHYROID [facility] Other History general Narrative - Reported Note Date & Type Note Facility History general Narrative - Reported [facility] Other History general Narrative - Reported Note [...] Comment : None, Problem Status : Active, [facility] Other Summary Purpose Family History No Family [...] CREATED AUTHOR AUTHOR'S ORGANIZ ATION 02/18/2024 [facility] REASON FOR VISIT (unrecogniz ed [...] BE BASED ON THE PRIMARY CLINICAL RECORDS. [facility]. provides no warranty or guarantee of the accuracy or completeness of information in this document.
[2025-02-21 10:34] LABS: Thyroid Stimulating Hormone 2.423 uIU/mL (0.358-3.740)
== END 2025-02-21 09:48 | disposition home or self-care (01) ==
LOC: LAB 09:48
PROVIDERS: PCP Family Medicine; Visit Provider Family Medicine
DX: E03.9 Hypothyroidism, unspecified (principal)
CPT/HCPCS: 36415; 84439; 84443

== ENCOUNTER 2025-07-26 10:15 | Outpatient (OUT) | payer OTHER, SELFPAY ==
--- NOTE | 2025-07-26 10:42 | MM_ITS ---
Patient Name: CATHY CANALES MR#: [id number] : 1970 Exam Date: 07/26/2025 Ordering Doctor: DR CARMINA HOLLAND M.D. RADIOLOGY REPORT PROCEDURE: MM TOMOSYNTHESIS SCREENING BI COMPARISON: MM TOMOSYNTHESIS SCREENING BI, 07/20/2024. MM TOMOSYNTHESIS SCREENING BI, 07/15/2023. MG MAMM SCREEN 3D MELINDA CAD, 07/14/2022. MG MAMM MELINDA SCRN W CAD DIG, 01/24/2015. INDICATIONS: Screening Calculator Name NCI Breast Cancer Risk Assessment Tool 5 Year Breast Cancer Risk 1.20% Lifetime Breast Cancer Risk 9.40% Personal Breast Cancer No Personal Ovarian Cancer No Treatments None Family Cancers Grandfather-paternal with lung cancer at age ~75. LOCATION: [facility] BREAST COMPOSITION: The breasts are extremely dense, which lowers the sensitivity of mammography. FINDINGS: RIGHT BREAST: No significant suspicious finding. LEFT BREAST: No significant suspicious finding. DIAGNOSTIC CATEGORY 1--NEGATIVE. NO CHANGE FROM COMPARISON ASSESSMENT. RECOMMENDATIONS: ROUTINE MAMMOGRAM AND CLINICAL EVALUATION IN 12 MONTHS. Dictated by: Merrick Freitas MD on 07/26/2025 at 15:18 Approved by: Merrick Freitas MD on 07/26/2025 at 15:20
== END 2025-07-26 10:16 | disposition home or self-care (01) ==
LOC: MAMMO 10:15
PROVIDERS: PCP Family Medicine; Visit Provider Family Medicine
DX: Z12.31 Encounter for screening mammogram for malignant neoplasm of breast (principal); Z80.1 Family history of malignant neoplasm of trachea, bronchus and lung
CPT/HCPCS: 77063; 77067